=== PATIENT | male | born 1945 | race Caucasian/White ===

== ENCOUNTER 2019-05-23 08:39 | Observation (INO) ==
--- NOTE | 2019-05-23 09:02 | PROVIDER DOCUMENTATION ---
HPI-Neurological Disorder - General Chief Complaint: Stroke-Like Symptoms Stated Complaint: STROKE LIKE SYMPTOMS Time Seen by Provider: 05/23/19 09:00 Source: patient, family, old records Allergies/Adverse Reactions: Patient Allergies Allergy/AdvReac Type Severity Reaction Status Date / Time Penicillins Allergy Severe HIVES Verified 05/23/19 09:27 Home Medications: Home Medication List Medication Instructions Recorded Confirmed Last Taken Type Metformin [Glucophage] 1,000 mg PO BID CC 06/16/13 05/23/19 05/23/19 History PRAVAstatin [Pravachol] 40 mg PO QHS 06/16/13 05/23/19 05/22/19 History Valsartan/Hydrochlorothiazide 1 each PO DAILY 05/13/14 05/23/19 05/23/19 History [Diovan Hct 160-12.5 mg Tab] Allopurinol 100 mg PO QAM 05/23/19 05/23/19 3 Months Ago History ~02/20/19 Clopidogrel Bisulfate [Plavix] 75 mg PO QAM 05/23/19 05/23/19 05/23/19 History Metoprolol Succinate E.r. [Toprol 100 mg PO DAILY 05/23/19 05/23/19 05/23/19 History Xl] - History of Present Illness-Neuro Nature of Presenting Problem: Pt was @ [place] this a.m. approx 8a when he developed (expr aphasia) lasting 10- 15 min. it resolved as he walked back to his car. there was no receptive component. he says he speech was guttural, almost ltd to sounds rather than words. last year he had an episode of ? amaurosis fugax in OD, which resolved with (retinal) laser Tx. Dr. Johnny lao carotids at that time, did not think this was embolic from carotids, per pt. Dr. Whitehead follows for hx of ? arrhythmia, but pt has no clear hx of afib. he has HBP/DM/lipids on daily ASA (81) and Plavix: he took a 325 ASA and his Plavix already this am. he denies any other signs/sx assoc with the event this am except the aphasia. per 2013 H&P (joint surgery): PAST MEDICAL HISTORY: He has a history of hypertension, past history of kidney stones, urinary tract infections, osteoarthritis, type 2 diabetes, and hyperlipidemia. PREVIOUS SURGERIES: Left total knee arthroplasty, bilateral inguinal hernia repair, bilateral cataracts, and an ESWL for kidney stones. He was on Xarelto in the distant past, likely prophylaxis for DVT following orthop surgery. Review of Systems - Adult - REVIEW OF SYSTEMS - ADULT Constitutional: reports: no symptoms reported Eyes: reports: no symptoms reported Ears, Nose, Mouth & Throat: reports: no symptoms reported Cardiovascular: reports: no symptoms reported Respiratory: reports: no symptoms reported Gastrointestinal: reports: no symptoms reported Genitourinary: reports: no symptoms reported Musculoskeletal: reports: no symptoms reported Integumentary: reports: no symptoms reported Neurological: reports: see HPI Psychiatric: reports: no symptoms reported Endocrine: reports: no symptoms reported Hematologic/Lymphatic: reports: no symptoms reported Allergic/Immunologic: reports: no symptoms reported All Other Systems: Reviewed and Negative Past History - Adult - PAST MEDICAL HISTORY-ADULT Review of Records: reports: Old Records Reviewed Physical Exam- Neurological - Physical Exam-Neuro Initial Vital Signs Reviewed: Yes General Appearance: appears well, alert, no apparent distress Eye Exam: bilateral eye: normal inspection, PERRL, EOMI HENMT: normocephalic/atraumatic, moist mucous membranes, normal ENT inspection Head Injury: no evidence of injury Neck: supple. negative: carotid bruit (carotid art. impulse is 3-4+ on R, 1+ on left.) Respiratory: lungs clear, normal breath sounds, no respiratory distress Cardiovascular: normal peripheral pulses, regular rate, rhythm, no edema Abdominal Exam: normal bowel sounds, non tender, soft Lymphatic: no adenopathy Peripheral Pulses: radial (R): 2+, radial (L): 2+ Extremity: normal range of motion, normal gait, normal inspection activity coordinator Exam: normal hearing, normal speech, PERRL Motor/Sensory: no motor deficit, no sensory deficit, no pronator drift, negative Babinski's sign Neurologic: activity coordinator II-XII nml as tested, grossly normal Integumentary: normal color, normal turgor, warm/dry Psych/Mental Status: normal mood/affect, normal thought content - Glascow Coma Scale Best Eye Response: (4) open spontaneously Best Verbal Response: (5) oriented Best Motor Response: (6) obeys commands Progress - PLAN OF CARE/RESULTS Progress/Plan/Lab Results: Vital Signs - 8 hr 05/23/19 08:47 05/23/19 09:04 05/23/19 09:06 Temperature 97.3 F L Pulse Rate 54 L 50 L Respiratory Rate 17 26 H Blood Pressure 172/91 162/106 O2 Sat by Pulse Oximetry 98 98 99 05/23/19 09:11 05/23/19 09:15 05/23/19 09:44 Temperature Pulse Rate 60 61 55 L Respiratory Rate 18 17 17 Blood Pressure 171/79 O2 Sat by Pulse Oximetry 98 98 05/23/19 09:45 05/23/19 10:00 05/23/19 11:00 Temperature Pulse Rate 50 L 63 49 L Respiratory Rate 15 22 20 Blood Pressure O2 Sat by Pulse Oximetry 97 96 97 05/23/19 12:00 05/23/19 13:00 05/23/19 13:33 Temperature Pulse Rate 54 L 61 55 L Respiratory Rate 21 20 18 Blood Pressure 126/70 O2 Sat by Pulse Oximetry 98 98 96 Laboratory Results - last 24 hr 05/23/19 05/23/19 05/23/19 09:12 09:12 09:12 WBC 7.67 RBC 4.00 L Hgb 13.0 L Hct 37.6 L MCV 94.0 MCH 32.5 H MCHC 34.6 RDW Std Deviation 13.9 Plt Count 271 MPV 9.0 Immature Gran % (Auto) 1.0 H Neut % (Auto) 61.9 Lymph % (Auto) 24.3 Bowie % (Auto) 8.0 Eos % (Auto) 3.9 Baso % (Auto) 0.9 H Immature Gran # (Auto) 0.08 H Neut # (Auto) 4.75 Lymph # (Auto) 1.86 Bowie # (Auto) 0.61 H Eos # (Auto) 0.30 Baso # (Auto) 0.07 PT INR PTT (Actin FS) Sodium 140 Potassium 4.3 Chloride 103 Carbon Dioxide 24 L Anion Gap 13 BUN 30 H Creatinine 1.5 H Estimated GFR/1.73 m2 46 BUN/Creatinine Ratio 20 Glucose 126 H Calculated Osmolality 287 Calcium 8.9 Magnesium 1.8 Total Bilirubin 0.29 AST 15 ALT 20 Alkaline Phosphatase 66 Total Protein 6.9 Albumin 4.2 Globulin 2.7 Albumin/Globulin Ratio 1.6 TSH 0.89 Thyroxine (T4) 6.22 05/23/19 09:12 WBC RBC Hgb Hct MCV MCH MCHC RDW Std Deviation Plt Count MPV Immature Gran % (Auto) Neut % (Auto) Lymph % (Auto) Bowie % (Auto) Eos % (Auto) Baso % (Auto) Immature Gran # (Auto) Neut # (Auto) Lymph # (Auto) Bowie # (Auto) Eos # (Auto) Baso # (Auto) PT 13.1 INR 0.99 PTT (Actin FS) 30.9 Sodium Potassium Chloride Carbon Dioxide Anion Gap BUN Creatinine Estimated GFR/1.73 m2 BUN/Creatinine Ratio Glucose Calculated Osmolality Calcium Magnesium Total Bilirubin AST ALT Alkaline Phosphatase Total Protein Albumin Globulin Albumin/Globulin Ratio TSH Thyroxine (T4) Orders Category Date Time Status Admit - [facility] Routine AdmDCTranf 05/23/19 14:15 Active Neurological Check ORDERED Care 05/23/19 14:17 Active CHEST-1 VIEW [RAD] Stat Exams 05/23/19 09:[address] HEAD W/O CONTRAST [CT] Stat Exams 05/23/19 09:14 Completed CBC WITH DIFF [HEME] Stat Lab 05/23/19 09:12 Completed COMPREHENSIVE METABOLIC PANEL [CHEM] Stat Lab 05/23/19 09:12 Completed MAGNESIUM [CHEM] Stat Lab 05/23/19 09:12 Completed PROTIME WITH INR [COAG] Stat Lab 05/23/19 09:12 Completed PTT [COAG] Stat Lab 05/23/19 09:12 Completed T4 Stat Lab 05/23/19 09:12 Completed TSH Stat Lab 05/23/19 09:12 Completed EKG [EKG] Stat Ther 05/23/19 09:15 Ordered Transfer/Admit Order [TRANSFER] Routine Transfer 05/23/19 14:16 Ordered Result Diagrams: 05/23/19 09:12 05/23/19 09:12 Departure - Departure Date of Disposition Decision: 05/23/19 Time of Disposition Decision: 14:05 DIAGNOSIS: TIA (transient ischemic attack) Disposition: ADMITTED INPATIENT 09 Certified Medical Emergency: Emergent Condition: Stable - Critical Care Note This patient required my direct & personal management of CC.: No Attestation - Physician/ ZACHARY Attestation The physician spent face to face time with patient:: Yes Advanced Practice Provider documentation review:: Supervising physician onsite and consulted in the evaluation and care of this patient. The physician did have a face to face encounter with the patient. - NIH Stroke Scale Level of Consciousness: 0-Alert LOC Questions (ask month and age): 0-Answers Both Correctly LOC Commands (ask to open & close eyes;make a fist, let go): 0-Obeys Both Correctly Best Gaze (horizontal eye movement): 0-Normal Visual (use finger movement, counting or visual threat): 0-No Visual Loss Facial Palsy (show teeth or raise eyebrows & close eyes tght: 0-Symmetrical Movement Motor Function-left arm: 0-Normal Motor Function-right arm: 0-Normal Motor Function-left le-Normal Motor Function-right le-Normal Limb Ataxia([id number], or heel to ceullo): 0-No Ataxia Sensory(pin prick to face,arms,trunk,legs-compare side/side): 0-No Ataxia Best Language(name item/read sentence.Ex-Down to Earth): 0-No Aphasia Dysarthria(Pt read words or say words Ex.Mama,Tip-Top,Thanks: 0-Normal Articulation Extinction and Inattention: 0-Normal Modified [place] Score Criteria: 0-no symptoms
[2019-05-23 09:38] LABS: BASO# 0.07 X1000 (0.0-0.2); BASO% 0.9 % (0.0-0.8); EOS% 3.9 % (0.0-10.0); HEMATOCRIT 37.6 % (42.0-52.0); IMM GRAN# 0.08 X1000 (0.0-0.04); LYMPH# 1.86 X1000 (1.2-3.4); LYMPH% 24.3 % (20.5-51.1); MCH 32.5 PG (27-31); MCHC 34.6 g/dL (33-37); MONO# 0.61 X1000 (0.11-0.59); NEUT# 4.75 X1000 (1.4-6.5); NEUT% 61.9 % (42.2-75.2); PLT 271 X1000 (130-400); RDW 13.9 % (11.5-14.5); WBC 7.67 X1000 (4.8-10.8)
[2019-05-23 09:47] LABS: ALB/GLOB RATIO 1.6; ALBUMIN 4.2 g/dL (3.5-5.0); CALCIUM 8.9 mg/dL (8.8-10.2); CREATININE 1.5 mg/dL (0.7-1.2); MAGNESIUM 1.8 mg/dL (1.5-2.7); POTASSIUM 4.3 mmol/L (3.5-5.1); TOTAL BILIRUBIN 0.29 mg/dL (0.20-1.00); TOTAL PROTEIN 6.9 g/dL (6.3-8.3)
--- NOTE | 2019-05-23 09:47 | Diag Imaging Result Doc PS360 ---
EXAM: CT HEAD W/O CONTRAST 05/23/2019 HISTORY: TiA, expressive aphasia TECHNIQUE: This exam was performed using automated exposure control, adjustment of mA or kV according to patient size, and/or use of iterative reconstruction technique. COMMENT: There are some calcifications in the left vertebral and both internal carotid arteries. There is no evidence of mass effect, bleed, or abnormal extra-axial fluid collection. There is a lacunar lucency in the periventricular white matter adjacent to the head of the left caudate nucleus which was not clearly present on the previous examination of 10/04/2011. There is a cortical calcification possibly also vascular in nature in the right frontoparietal region. This is much denser than on the previous study of 10/04/2011. The visualized paranasal sinuses are clear. The calvarium is intact. IMPRESSION: Minimal chronic ischemic changes. Atherosclerosis. If clinically indicated further follow-up with MRI may be desirable. Electronically signed by Marito Haney 05/23/2019 9:44 AM
--- NOTE | 2019-05-23 09:53 | Diag Imaging Result Doc PS360 ---
EXAM: CHEST-1 VIEW 05/23/2019 HISTORY: TIA TECHNIQUE: AP upright at 0949 COMMENT: Considering differences in inspiration and technique the appearance of the chest has not changed significantly since 07/25/2016. IMPRESSION: No acute disease. Electronically signed by Marito Haney 05/23/2019 9:51 AM
[2019-05-23 09:57] LABS: INR 0.99; PROTIME 13.1 Seconds (11.0-16.0); PTT 30.9 Seconds (22.3-41.8); T4 6.22 ug/dL (4.60-12.00); TSH 0.89 uIUmL (0.27-4.20)
--- NOTE | 2019-05-23 12:28 | ED EKG INTERP ---
This chart was entered by Fara Escalera Scribe, acting as scribe for Hi Uribe MD. EKG Interpretation - EKG Time of EKG reading by physician:: 09:27 EKG Read and Signed by:: Hi Uribe EKG Interpretation (*Must complete 3 of following elements*): Abnormal Rate: 48 Rhythm: Sinus [place]: left QRS: normal [place] Interval: normal ST Wave: normal Attestation - Physician/ ZACHARY Attestation Patient care was provided by Advanced Practice Provider:: No The physician spent face to face time with patient:: Yes Advanced Practice Provider documentation review:: Supervising physician onsite and consulted in the evaluation and care of this patient. The physician did have a face to face encounter with the patient. This chart was documented by the indicated scribe, (Fara Escalera Scribe) and accurately reflects the services I performed and decisions made by me, Hi Uribe MD, as attested by the provider's signature.
--- NOTE | 2019-05-23 16:02 | EKG Report ---
Test Performed on : 05/23/2019 09:27:05 AM Test Reason : Tia Blood Pressure : / mmHG Vent. Rate : 048 BPM Atrial Rate : 048 BPM P-R Int : 202 ms QRS Dur : 098 ms QT Int : 452 ms P-R-T Axes : 018 -45 -10 degrees QTc Int : 403 ms Sinus bradycardia. Left axis deviation Abnormal ECG When compared with ECG of 13-MAY-2014 11:58, premature ventricular complexes. are no longer present Vent. rate has decreased BY 28 BPM QT has shortened Unconfirmed Result
--- NOTE | 2019-05-23 16:51 | HISTORY AND PHYSICAL ---
CHIEF COMPLAINT: Stroke-like symptoms, speech impediments 8 o'clock this morning. HPI: He is a 74-year-old white male pleasant patient of Dr. Ruffin, basically was brought in with expressive aphasia, not able to talk what he wants to say, lasting about 10 to 15 minutes while he was shopping at [employer]. He had a history of amaurosis fugax on the left side, seen by Dr. 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 He had a carotid Doppler 6 months ago which was negative. He denies of any vision problems, headaches, nausea, weakness on the right side. He was seen by Dr. Ruffin 3 weeks ago for pinched nerve in the left neck was treated with muscle relaxants. Currently, he is fine. ER workup, CT head was microvascular ischemic changes. Basically admitted to the hospital for possible CVA on the left side. He is also dehydrated, started on IV fluids and check the A1c, lipid panel, MRI of the brain, MRI of the neck. As a result, the hospital admission was warranted. PAST MEDICAL HISTORY: 1. Metabolic syndrome. 2. Hypertension. 3. Type 2 diabetes. 4. Kidney stones. 5. Osteoarthritis. 6. Hyperlipidemia. PAST SURGICAL HISTORY: 1. Bilateral knee arthroplasty by Dr. Manzano. 2. Bilateral inguinal hernia repair, bilateral cataract surgery and lithotripsy for kidney stones. MEDICATIONS: Pravastatin 40 mg daily, metformin 1000 p.o. b.i.d., Diovan 160/12.5 daily, allopurinol 100 daily, metoprolol 100 daily, Plavix 75 daily. ALLERGIES: Penicillin. SOCIAL HISTORY: . 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 Denies of smoking. Socially drinks alcohol. FAMILY HISTORY: Unremarkable. HEALTH MAINTENANCE: He had annual exams done by Dr. Ruffin. They are up-to-date as per the history. REVIEW OF SYSTEMS: HEENT: No headache. No vision problem. No earache. No sore throat. Neck: No goiter. No lymphadenopathy and no neck pain. Recently treated for pinched nerve on the left side. Cardiopulmonary: No chest pain, shortness of breath, PND, orthopnea. GI: No nausea, vomiting, abdominal pain. : No history of hesitancy, frequency, dysuria. No swelling of feet. History of joint pains. No neurological symptoms or weakness other than expressive aphasia. PHYSICAL EXAMINATION: Temperature is 98 degrees, pulse 56, blood pressure is 130/68, 5 feet 11, 218 pounds. HEENT: Atraumatic, normocephalic. Pupils equal, react to light. TMs are normal. Nose and throat within normal limits. NECK: Supple. No lymphadenopathy. No goiter. CHEST: Bilateral air entry. HEART: Sounds are regular. No murmur. BELLY: Soft, obese, nontender. Good bowel sounds. RECTAL: Deferred. Bilateral knee scar present. No peripheral edema, cyanosis. No obvious neurological deficits. INVESTIGATIONS: CBC: White cell count 7.6, hematocrit 37.6, platelet 271,000. PT 13, INR 0.9. Sodium 140, potassium 4.3, BUN 30, creatinine 1.5, glucose 126. Thyroid normal. Chest x-ray reported no acute disease. Head CT, minimal chronic ischemic changes, atherosclerotic changes noted. ASSESSMENT AND PLAN: A 74-year-old white male admitted to the hospital with transient ischemic attack symptoms with expressive aphasia, looks like a Broca 's area and left MCA distribution superior division . PLAN: 1. Aspirin, Plavix. 2. MRI of the brain, MRA of the brain. Previous Dopplers were negative. 3. Continue aspirin Plavix. 4. Dehydration, IV fluids. 5. Deep vein thrombosis, gastrointestinal prophylaxis as per order sheet with Lovenox, physical therapy. 6. Reconcile home medicines. 7. Type 2 diabetes. Continue on metformin with sliding scale with insulin coverage. 8. Check the A1c, lipid panel and discussed the plan of care with the patient and will follow up. cc: Robin Hernandez MD [facility]
[2019-05-23] MEDS: GLUCOPHAGE PO SCH (17:48)
[2019-05-23] MEDS: NS 1,000 ML IV SCH (17:48)
[2019-05-23] MEDS: LOVENOX SUBQ SCH ×2 (21:31→21:34)
[2019-05-23] MEDS: PRAVACHOL PO SCH (21:31)
[2019-05-23] MEDS: HUMULIN R SUBQ SCH (21:35)
[2019-05-24] MEDS: NS 1,000 ML IV SCH (05:23)
[2019-05-24] MEDS: HUMULIN R SUBQ SCH ×3 (06:35→16:00)
[2019-05-24 07:06] LABS: ALB/GLOB RATIO 1.9; ALBUMIN 3.8 g/dL (3.5-5.0); CALCIUM 8.9 mg/dL (8.8-10.2); CREATININE 1.4 mg/dL (0.7-1.2); POTASSIUM 4.1 mmol/L (3.5-5.1); TOTAL BILIRUBIN 0.33 mg/dL (0.20-1.00); TOTAL PROTEIN 5.8 g/dL (6.3-8.3)
[2019-05-24] MEDS: GLUCOPHAGE PO SCH ×2 (08:40→16:55)
[2019-05-24] MEDS: ASPIRIN PO SCH (08:40)
[2019-05-24] MEDS: ZYLOPRIM PO SCH (08:40)
[2019-05-24] MEDS: DIOVAN PO SCH (08:40)
[2019-05-24] MEDS: TOPROL XL PO SCH (08:40)
[2019-05-24] MEDS: PLAVIX PO SCH (08:40)
[2019-05-24] MEDS: HYDROCHLOROTHIAZIDE PO SCH (08:40)
[2019-05-24] MEDS ORDERED: NS 1,000 ML IV SCH (12:45)
--- NOTE | 2019-05-24 14:21 | PROGRESS NOTE ---
DATE: 05/24/2019 SUBJECTIVE: Patient is anxious to go home. No speech impediments. 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 Family was at bedside and refusing Lovenox injections. No headaches. OBJECTIVE: Vital signs: Temperature is 98.1 degrees, pulse 56, blood pressure is 138/73, 97% on room air. HEENT: Within normal limits. No facial droop noted. Neck: Supple. Chest: Bilateral air entry. Heart: Sounds are regular. Abdomen: Belly is soft, nontender. 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 Neurologic: No neurological deficits. INVESTIGATIONS: A1c 7.0. Creatinine 1.4. ASSESSMENT AND PLAN: 1. Broca aphasia, suspicious left middle cerebral artery distribution, superior division. Previous carotid Dopplers were negative. 2. Hollenhorst plaque disease. Previous carotid negative. 3. Diabetes. Excellent control. 4. Hyperlipidemia. On pravastatin. Check the LDL. 5. Gout. On Zyloprim. 6. Creatinine 1.4. Continue on IV fluids 50 mL/h and schedule for MRI of the brain, MRA of the neck and Brain. This appears to be a lacunar stroke and the patient is in sinus bradycardia. Discussed the plan of care with the family at bedside. Dr. Ruffin is going to follow up. LEVEL OF DOCUMENTATION: 25 minutes. cc: Robin Hernandez MD MTDSaeed
[2019-05-24] MEDS: PRAVACHOL PO SCH (20:40)
[2019-05-24] MEDS: LOVENOX SUBQ SCH (20:40)
[2019-05-25] MEDS: HUMULIN R SUBQ SCH ×2 (06:28→06:29)
[2019-05-25 07:28] LABS: AGAP 13; BUN 21 mg/dL (8-22); CALCIUM 8.8 mg/dL (8.8-10.2); CHLORIDE 105 mmol/L (98-107); CHOLESTEROL 119 mg/dL (0-200); COSMO 288; CREATININE 1.4 mg/dL (0.7-1.2); ESTIMATED GFR 50; GLUCOSE 129 mg/dL (70-104); HDL 32 mg/dL (35-55); LDL 40 mg/dL; POTASSIUM 4.6 mmol/L (3.5-5.1); SODIUM 142 mmol/L (136-145); TCO2 24 mmol/L (25-35); TRIGLYCERIDES 237 mg/dL (39-160); VLDL 47 mg/dL
--- NOTE | 2019-05-25 09:39 | Diag Imaging Result Doc PS360 ---
MRI BRAIN W/O CONTRAST - 05/24/2019 INDICATION: CVA left COMPARISON: Head CT 05/23/2019 FINDINGS: There is no area of restricted diffusion. The ventricles and sulci are normal in size and contour. No intracranial mass or hemorrhage. Midline structures including the optic chiasm and pituitary are normal. IMPRESSION: Negative exam. Electronically signed by Jonathan Mcrae 05/25/2019 9:37 AM
--- NOTE | 2019-05-25 09:41 | Diag Imaging Result Doc PS360 ---
MRA BRAIN W/CONTRAST - 05/24/2019 INDICATION: CVA left TECHNIQUE: Noncontrast [id number] technique was used COMPARISON: None FINDINGS: There is mild patient motion artifact causing some distortion of the study generally. The intracranial vessels are all grossly normal. There is no aneurysm or significant stenosis. There is a complete [place] of [place]. IMPRESSION: Negative exam. Electronically signed by Jonathan Mcrae 05/25/2019 9:39 AM
--- NOTE | 2019-05-25 09:45 | Diag Imaging Result Doc PS360 ---
MRA NECK W/CONT - 05/23/2019 INDICATION: stroke TECHNIQUE: COMPARISON: None FINDINGS: Normal aortic arch. Normal great vessels. There is moderate plaque buildup at the left carotid bulb. This causes moderate narrowing of about 50%. The remainder of the carotid arteries are all normal in caliber. The vertebral and basilar arteries are normal. IMPRESSION: Atherosclerotic plaque buildup of the left carotid bulb causing moderate narrowing of about 50%. Electronically signed by Jonathan Mcrae 05/25/2019 9:43 AM
[2019-05-25] MEDS: ZYLOPRIM PO SCH (10:24)
[2019-05-25] MEDS: ASPIRIN PO SCH (10:24)
[2019-05-25] MEDS: HYDROCHLOROTHIAZIDE PO SCH (10:25)
[2019-05-25] MEDS: DIOVAN PO SCH (10:25)
[2019-05-25] MEDS: PLAVIX PO SCH (10:26)
[2019-05-25] MEDS: TOPROL XL PO SCH (10:26)
[2019-05-25] MEDS: GLUCOPHAGE PO SCH (10:26)
[2019-05-25 12:09] VITALS: BP 135/72
--- NOTE | 2019-05-25 16:48 | DISCHARGE SUMMARY ---
ADMISSION DATE: 05/23/2019 DISCHARGE DATE: 05/25/2019 DIAGNOSES: 1. Transient ischemic attack. 2. Type 2 diabetes mellitus. 3. Hypertension. 4. Hypercholesterolemia. 5. Moderate left carotid stenosis, primarily in the bulb. 6. Osteoarthritis. 7. History of kidney stones. 8. Gout, inactive. 9. Mild chronic renal insufficiency. PROCEDURES: 1. CT head without contrast done 05/23 revealed minimal chronic ischemic changes with atherosclerosis. 2. Chest x-ray, no acute disease. 3. Neck MRA revealing atherosclerotic plaque buildup of the left carotid bulb causing moderate narrowing of 50%. 4. Brain MRA with contrast revealing negative exam. 5. MRI brain without contrast, negative exam. REASON FOR ADMISSION AND HOSPITAL COURSE: The patient is a 74-year-old white male followed in my medical practice. The patient has been followed by Dr. Turner for some left carotid stenosis and has had carotid Dopplers done in the past 6 months, which have been satisfactory. He has remained on Plavix, Pravachol 40, metformin 1000 b.i.d., Diovan/HCT 160/12.5 mg daily, allopurinol 100 mg daily, Toprol-XL 100 mg daily. 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 The patient has had no persistent word-finding difficulties and his right va underwriter and left va underwriter is normal. He ambulates without difficulty. Moves all extremities well. Good strength right arm, left arm, left leg, right leg. Again, he is alert orient x3 now. Studies were done as above. He was placed on aspirin 81 mg daily in addition to his home medications. Had no difficulties during the hospitalization. It was felt he could be discharged home to follow up with me in 2 weeks. He will be on no major strenuous activity for 2 weeks. DISCHARGE MEDICATIONS: Will again be, aspirin 81 mg daily, Plavix 75 mg daily, allopurinol 100 mg p.o. daily, Diovan/HCT 160/12.5 mg p.o. q.a.m., Toprol-XL 100 mg p.o. daily, metformin 1000 mg p.o. b.i.d. with meals, Pravachol 40 mg p.o. at bedtime. LAB DATA: Shows white count 7.6, hemoglobin 13, platelets 271,000. PT 13.1, PTT 30.9. CMP was normal with potassium of 4.3, sodium 140, BUN 30, creatinine 1.5. CMP was largely normal except for elevated creatinine, as listed. Magnesium 1.8. Total bilirubin 0.29, AST 15, ALT 20, alkaline phosphatase 66. LDL was 42, VLDL 47, HDL 32, total cholesterol 119, triglycerides 237. TSH 0.89, T4 level 6.22. DISCHARGE PHYSICAL EXAMINATION: CV: RRR without significant murmur. Lungs: CTA. Neurologic: Normal. EKG showed sinus bradycardia with left axis deviation. cc: MD Robin Martin MD
== END 2019-05-25 13:53 | disposition home or self-care (01) ==
LOC: ED 08:39 → 4N 08:39
PROVIDERS: ADMIT Internal Medicine; ATTEND Family Medicine